=== PATIENT | female | born 1945 | race African-American/Black ===

== ENCOUNTER 2016-11-10 21:00 | Inpatient (IN) | payer OTHER, MEDICAID ==
[~2016-11-10] VITALS: Ht 170.2 cm; Wt 120.7 kg
[~2016-11-10 21:00] MED LIST: ACET-3161 PO; AMLO5TAB4 PO; ASPI-1035 PO; HYDR25TA PO; LOSA25TA12 PO; PANT40TA4 PO; TEMA15CA PO; TIOT18CA3 IH
[2016-11-10] MEDS ORDERED: METHYLPREDNISOLONE SOD SUCC 125 MG/2 ML VIAL IV STA (21:15)
[2016-11-10] MEDS ORDERED: IPRATROPIUM BROMIDE (0.02%) 0.5MG/2.5ML NEB HHN STA (21:15)
[2016-11-10 21:44] LABS: BASOPHILS % 0.5 % (0.0-2.0); EOSINOPHILS % 1.4 % (0.0-5.0); HEMATOCRIT. 35.7 % (36.0-48.0); HEMOGLOBIN. 11.4 g/dL (12.0-16.0); LYMPHOCYTES % 22.9 % (20.0-50.0); MEAN CORPUSCULAR HEMOGLOBIN 27.5 pg (28.0-32.0); MEAN PLATELET VOLUME 7.5 fl (7.4-10.4); MONOCYTES % 5.7 % (2.0-8.0); NEUTROPHILS % 69.5 % (40.0-76.0); PLATELET 285 x1000/uL (130-400); RED BLOOD CELL COUNT 4.15 mill/uL (4.2-5.4); RED CELL DISTRIBUTION WIDTH 15.6 % (11.6-14.6)
[2016-11-10] MEDS ORDERED: ALBUTEROL (0.5%) 2.5MG/0.5ML NEB HHN ONE (21:47)
[2016-11-10 21:48] LABS: CHLORIDE 111 mEq/L (98-107)
[2016-11-10 21:54] LABS: INR 3.8; PROTHROMBIN TIME 39.7 sec
[2016-11-10 21:55] LABS: CARBON DIOXIDE 21 mEq/L (21-32)
[2016-11-10] MEDS: ALBUTEROL (0.083%) 2.5MG/3ML NEB HHN SCH ×3 (21:55→22:55)
[2016-11-10 21:59] LABS: TROPONIN I 0.03 ng/mL (0.00-0.04)
[2016-11-10] MEDS ORDERED: SODIUM CHLORIDE 0.9% 1,000 ML IV ONE (22:45)
[2016-11-11] VITALS (7 sets, daily range): BP systolic 91–122; BP diastolic 65–93
[2016-11-11] MEDS ORDERED: ALBUTEROL (0.5%) 2.5MG/0.5ML NEB HHN ONE
[2016-11-11] MEDS ORDERED: ALBU6.7H INH (03:02)
[2016-11-11] MEDS ORDERED: WARF2TAB55 PO (03:03)
[2016-11-11] MEDS: IPRATROPIUM/ALBUTEROL 0.5-3(2.5)MG/3ML NEB HHN SCH ×5 (06:46→23:48)
[2016-11-11] MEDS: AZITHROMYCIN 250 MG TABLET PO SCH (08:16)
[2016-11-11] MEDS: PREDNISONE 20MG TABLET PO SCH (08:16)
[2016-11-11] MEDS: PANTOPRAZOLE 40MG DR TABLET PO SCH (08:17)
[2016-11-11] MEDS: AMLODIPINE 5MG TABLET PO SCH (09:00)
[2016-11-11] MEDS: LOSARTAN POTASSIUM 25 MG TABLET PO SCH (09:00)
[2016-11-11] MEDS: ACETAMINOPHEN 325MG TABLET PO PRN ×2 (09:34→14:41)
[2016-11-11 10:34] LABS: BG BASE EXCESS -4.9 mmol/L (-2.0-2.0); BG CARBOXYHEMOGLOBIN 0.3 % (0.5-1.5); BG DEOXYHEMOGLOBIN 4.1 % (0.0-5.0); BG FRACTION INSPIRED OXYGEN 21; BG HCO3 ACT 20.2 mmol/L (22.0-26.0); BG METHEMOGLOBIN 0.1 % (0.0-1.5); BG OXYGEN SATURATION 95.9 % (92.0-98.5); BG OXYHEMOGLOBIN 95.5 % (94.0-97.0); BG PCO2 37.4 mmHg (35.0-45.0); BG PO2 85.9 mmHg (75.0-100.0); BG SAMPLE SITE RIGHT BRACHIAL; BG TOTAL HEMOGLOBIN 10.6 g/dL (12.0-18.0); BG VENT MODE ROOM AIR
[2016-11-11] MEDS: HYDROCODONE/ACETAMINOPHEN 5/325MG TABLET PO PRN ×2 (16:27→20:19)
[2016-11-11] MEDS ORDERED: WARFARIN SODIUM 2.5MG TABLET PO SCH (18:00)
[2016-11-11] MEDS: TEMAZEPAM 15MG CAPSULE PO SCH (22:50)
[2016-11-12 04:03] VITALS: BP 92/58
[2016-11-12] MEDS: IPRATROPIUM/ALBUTEROL 0.5-3(2.5)MG/3ML NEB HHN SCH ×5 (04:48→21:20)
[2016-11-12 07:19] LABS: PROTHROMBIN TIME 42.8 sec
[2016-11-12 08:00] VITALS: BP 105/69
[2016-11-12 08:07] LABS: INR 4.1
[2016-11-12] MEDS: LOSARTAN POTASSIUM 25 MG TABLET PO SCH (09:00)
[2016-11-12] MEDS: AMLODIPINE 5MG TABLET PO SCH (09:00)
[2016-11-12] MEDS: PREDNISONE 20MG TABLET PO SCH (09:02)
[2016-11-12] MEDS: AZITHROMYCIN 250 MG TABLET PO SCH (09:02)
[2016-11-12] MEDS: PANTOPRAZOLE 40MG DR TABLET PO SCH (09:02)
[2016-11-12] MEDS: HYDROCODONE/ACETAMINOPHEN 5/325MG TABLET PO PRN ×3 (09:07→21:10)
[2016-11-12 12:00] VITALS: BP 100/69
[2016-11-12 16:23] VITALS: BP 104/81
[2016-11-12] MEDS ORDERED: MAGNESIUM/ALUMINUM HYDROXIDE/SIMETHICONE 30ML UDC PO PRN (19:15)
[2016-11-12 20:00] VITALS: BP 118/85
[2016-11-13] VITALS (7 sets, daily range): BP systolic 92–121; BP diastolic 67–97
[2016-11-13] MEDS: IPRATROPIUM/ALBUTEROL 0.5-3(2.5)MG/3ML NEB HHN SCH ×6 (00:21→20:56)
[2016-11-13] MEDS: TEMAZEPAM 15MG CAPSULE PO SCH ×2 (00:39→21:53)
[2016-11-13 06:35] LABS: INR 3.1
[2016-11-13] MEDS: AMLODIPINE 5MG TABLET PO SCH ×2 (08:36→08:41)
[2016-11-13] MEDS: LOSARTAN POTASSIUM 25 MG TABLET PO SCH ×2 (08:36→08:40)
[2016-11-13] MEDS: PANTOPRAZOLE 40MG DR TABLET PO SCH (08:42)
[2016-11-13] MEDS: AZITHROMYCIN 250 MG TABLET PO SCH (08:42)
[2016-11-13] MEDS: HYDROCODONE/ACETAMINOPHEN 5/325MG TABLET PO PRN ×2 (08:42→18:43)
[2016-11-13] MEDS: PREDNISONE 20MG TABLET PO SCH (08:45)
[2016-11-13 10:17] LABS: BASOPHILS % 0.4 % (0.0-2.0); EOSINOPHILS % 0.2 % (0.0-5.0); HEMATOCRIT. 28.8 % (36.0-48.0); HEMOGLOBIN. 9.1 g/dL (12.0-16.0); LYMPHOCYTES % 18.8 % (20.0-50.0); MEAN CORPUSCULAR HEMOGLOBIN 27.3 pg (28.0-32.0); MEAN CORPUSCULAR VOLUME 86.1 fL (81.0-99.0); MONOCYTES % 5.1 % (2.0-8.0); NEUTROPHILS % 75.5 % (40.0-76.0); PLATELET 271 x1000/uL (130-400); RED BLOOD CELL COUNT 3.34 mill/uL (4.2-5.4); RED CELL DISTRIBUTION WIDTH 15.8 % (11.6-14.6)
[2016-11-13 10:31] LABS: CARBON DIOXIDE 24 mEq/L (21-32); CHLORIDE 113 mEq/L (98-107)
[2016-11-13] MEDS: BUDESONIDE 0.5MG/2ML NEB HHN SCH ×2 (12:11→20:56)
[2016-11-13] MEDS: METOCLOPRAMIDE HCL 5MG TABLET PO SCH ×3 (12:57→21:53)
[2016-11-13] MEDS ORDERED: WARFARIN SODIUM 2MG TABLET PO SCH (18:00)
[2016-11-14] VITALS: BP 107/73
[2016-11-14] MEDS: IPRATROPIUM/ALBUTEROL 0.5-3(2.5)MG/3ML NEB HHN SCH ×4 (00:15→15:09)
[2016-11-14 04:00] VITALS: BP 103/88
[2016-11-14 06:30] LABS: INR 2.8; PROTHROMBIN TIME 28.8 sec
[2016-11-14] MEDS: METOCLOPRAMIDE HCL 5MG TABLET PO SCH ×2 (06:49→17:20)
[2016-11-14] MEDS: BUDESONIDE 0.5MG/2ML NEB HHN SCH (07:38)
[2016-11-14 07:56] VITALS: BP 101/70
[2016-11-14] MEDS: AMLODIPINE 5MG TABLET PO SCH (08:06)
[2016-11-14] MEDS: LOSARTAN POTASSIUM 25 MG TABLET PO SCH (08:06)
[2016-11-14] MEDS: AZITHROMYCIN 250 MG TABLET PO SCH (08:39)
[2016-11-14] MEDS: PANTOPRAZOLE 40MG DR TABLET PO SCH (08:39)
[2016-11-14] MEDS: PREDNISONE 20MG TABLET PO SCH (08:39)
[2016-11-14] MEDS: HYDROCODONE/ACETAMINOPHEN 5/325MG TABLET PO PRN (08:43)
[2016-11-14 09:58] LABS: BASOPHILS % 0.4 % (0.0-2.0); EOSINOPHILS % 0.5 % (0.0-5.0); HEMATOCRIT. 25.7 % (36.0-48.0); HEMOGLOBIN. 8.3 g/dL (12.0-16.0); LYMPHOCYTES % 27.2 % (20.0-50.0); MEAN CORPUSCULAR HEMOGLOBIN 27.7 pg (28.0-32.0); MEAN CORPUSCULAR VOLUME 85.2 fL (81.0-99.0); MEAN PLATELET VOLUME 7.6 fl (7.4-10.4); MONOCYTES % 9.7 % (2.0-8.0); NEUTROPHILS % 62.2 % (40.0-76.0); PLATELET 226 x1000/uL (130-400); RED BLOOD CELL COUNT 3.02 mill/uL (4.2-5.4); RED CELL DISTRIBUTION WIDTH 15.6 % (11.6-14.6)
[2016-11-14 11:32] VITALS: BP 99/80
[2016-11-14 12:35] VITALS: BP 99/80
[2016-11-14 16:02] VITALS: BP 94/74
[2016-11-14] MEDS ORDERED: WARFARIN SODIUM 1MG TABLET PO SCH (18:00)
== END 2016-11-14 19:45 | disposition home or self-care (01) | DRG 682 ==
LOC: ER 21:01 → 6WST 23:09
PROVIDERS: ADMIT Internal Medicine; ATTEND Internal Medicine
DX: N17.9 Acute kidney failure, unspecified (principal); J96.00 Acute respiratory failure, unspecified whether with hypoxia or hypercapnia; J44.1 Chronic obstructive pulmonary disease with (acute) exacerbation; D68.59 Other primary thrombophilia; I10 Essential (primary) hypertension; Z79.82 Long term (current) use of aspirin; Z79.899 Other long term (current) drug therapy; Z71.6 Tobacco abuse counseling; Z86.718 Personal history of other venous thrombosis and embolism; Z79.01 Long term (current) use of anticoagulants
CPT/HCPCS: 36415; 36600; 71010; 80048; 80053; 82375; 82805; 83880; 84484; 85025; 85379; 85610; 93005; 93970; 94620; 94640; 96374; 99285; 99406; J2930; J7030; J7512; J7611; J7620; J7626; J8597